=== PATIENT | female | born 1950 | race Caucasian/White ===

== ENCOUNTER → 2017-08-07 | Outpatient (CLI) | payer OTHER | LOC: BMCIMAGING 14:18 | PROVIDERS: ATTEND Internal Medicine | DX: Z12.31 Encounter for screening mammogram for malignant neoplasm of breast (principal); Z13.820 Encounter for screening for osteoporosis; M81.0 Age-related osteoporosis without current pathological fracture; Z87.81 Personal history of (healed) traumatic fracture | CPT/HCPCS: G0202 ==

== ENCOUNTER 2018-09-22 12:41 | Observation (INO) | payer OTHER ==
--- NOTE | 2018-09-22 13:09 | EDPHY ---
HPI/HX/ROS/PE/MDM Narrative: CHIEF COMPLAINT: Chest tightness HISTORY OF PRESENT ILLNESS: The patient is a 67 y/o female complaining of chest tightness worse with deep breathing and two episodes of palpitations. Twice this last week she awoke with brief episodes of palpitations. The first time it felt like her heart would be racing and then slow and then begin racing again. The second time it felt like her heart was skipping a beat. Last night, around 3:00 AM, 10 hours ago, she awoke with tightness in the center of her upper chest. The tightness spreads up the back of the neck and into the jaw. She was able to fall back asleep but her symptoms did not improve upon waking. The discomfort is consistent and worsens with deep breathing and leaning forward. Earlier this morning, her stomach was upset but the feeling past and she was able to eat breakfast. She denies exercise intolerance, vomiting, or any other associated symptoms. She reports she has never been a smoker. One of her brothers developed coronary artery disease in his 50s. She took 324 mg of aspirin around 12:30 PM, 1 hour ago. The patient also reports several recent illnesses, a lingering cough, and an increase in frequency of headaches. No fever, chills, shortness of breath, vomiting, diarrhea, urinary complaints, lightheadedness. REVIEW OF SYSTEMS: A comprehensive 10 system review of systems is otherwise negative aside from elements mentioned in the history of present illness and medical decision making PAST MEDICAL HISTORY: Osteoporosis, GERD, microscopic colitis, ulcer SOCIAL HISTORY: at bedside, lives in [place], employed by the [employer] VITAL SIGNS: Reviewed by me GENERAL: Well-developed, well-nourished, resting comfortably in no respiratory distress. HEENT: Atraumatic. Eyes: No icterus, no injection. Mouth: moist mucous membranes. No erythema or lesions. Neck: supple with no adenopathy. LUNGS: Clear to auscultation bilaterally, no wheezes, rhonchi or rales. CARDIAC: Regular rate and rhythm, no rubs, murmurs or gallops. ABDOMEN: Soft, nontender, nondistended, bowel sounds normal. BACK: No CVA tenderness. EXTREMITIES: No trauma. No edema. Range of motion is normal throughout. NEURO: Alert and oriented, grossly nonfocal. SKIN: Warm and dry, no rash. PSYCHIATRIC: Normal mentation, no agitation. ED Course: Study: X-ray of the chest Indication: Chest tightness Results: X-ray of the chest was obtained. The results of the study are: normal chest x-ray The study was read by the radiologist, Dr. Gabriel. I viewed the images myself on the PACS system. Study: CT of the chest Indication: Positive D-dimer Results: X-ray of the chest was obtained. The results of the study are: negative for PE, airways disease The study was read by the radiologist, Dr. Gabriel. I viewed the images myself on the PACS system. The patient presents with two episodes of palpations and chest discomfort waking her at night in the past week. She awoke last night with chest tightness that has not resolved. She has a family history of coronary artery disease in a brother in his 50s. Her exam is normal. Plan for labs including CBC, basic metabolic panel, lipase, liver function, troponin, and d-dimer, EKG, and chest x -ray. 1:45 PM - The patient's d-dimer was elevated. Plan for chest CTA. 3:00 PM - The patient's CT was negative for PE. There is some evidence of airways disease. I feel she will benefit from admission and further evaluation of etiology of symptoms. The patient agrees to this course of action. Dr. Elaine will be the admitting physician. Patient did receive a albuterol nebulizer treatment in an effort to see if this would improve her chest discomfort. There was no change. MDM: 67-year-old female presenting with episode of chest tightness and discomfort which woke her from sleep last night. Symptoms have been present since approximately 3:00 a.m.. Patient describes worsening of her symptoms with leaning forward as well as with taking a deep breath. Discomfort is also felt in the back of her neck and bilateral jaws. EKG reveals normal sinus rhythm. Troponin is negative. D-dimer slightly elevated. CT angiogram of the chest: - Data Points Imaging Results: CXR: Impression: 1. Clear lungs. No acute process. 2. Numerous mild age indeterminate compression fractures in the mid thoracic spine Dictated By: Noah Gabriel MD Chest CT Impression: 1. No evidence of thrombopulmonary embolic disease. 2. Mild airways disease and minimal posterior dependent atelectasis. 3. Kyphosis and old mild compression fractures. Findings discussed with Emergency Department physician, Dr. Rosibel Ellis on September 22, 2018 at 1436 hours. Dictated By: Noah Gabriel MD Imaging: Discussed imaging studies w/ call center rn Radiologist, I viewed and interpreted images myself (CXR viewed and interpreted independently by myself) Laboratory Results: Laboratory Results 09/22/18 12:55 09/22/18 12:55 Medications Given: Discontinued Medications Albuterol (Proventil Neb) 3 ml IH EDNOW ONE Stop: 09/22/18 15:12 Last Admin: 09/22/18 15:21 Dose: 3 ml Albuterol/Ipratropium (Duoneb) 3 ml IH EDNOW ONE Stop: 09/22/18 15:12 Last Admin: 09/22/18 15:21 Dose: 3 ml Aspirin (Aspirin) 325 mg PO DAILY RONI Stop: 03/22/19 08:59 Last Admin: 09/23/18 15:36 Dose: 325 mg Cholecalciferol (Vitamin D) 1,000 units PO DAILY RONI Stop: 03/22/19 08:59 Last Admin: 09/23/18 08:23 Dose: Not Given Point of Care Test Results: Chemistry 09/22/18 13:03 POC Troponin I 0.00 ng/mL ng/mL (0.00-0.08) General Time Seen by Provider: 09/22/18 12:57 Initial Vital Signs: Initial Vital Signs Temperature (C) 37 C 09/22/18 12:43 Heart Rate 86 09/22/18 12:43 Respiratory Rate 18 09/22/18 12:43 Blood Pressure 128/71 H 09/22/18 12:43 O2 Sat (%) 94 09/22/18 12:43 O2 Delivery Mode Room Air Allergies/Adverse Reactions: Penicillins Allergy (Verified 09/22/18 15:26) Rash Home Medications: Medication Instructions Recorded Ascorbic Acid [Vitamin C 500 mg 1,000 mg PO DAILY 09/22/18 (*)] Cholecalciferol Vit D3 [Vitamin D3 1,000 units PO DAILY 09/22/18 (*)] Herbals/Supplements -Info Only 1 ea PO DAILY 09/22/18 Valacyclovir HCl [Valtrex] 2,000 mg PO Q12H PRN 09/22/18 Departure - Departure Disposition: [facility] Acute Clinical Impression: Positive D dimer, Chest tightness, Palpitations, Jaw pain Condition: Good Report Scribed for: Rosibel Ellis Report Scribed by: Nahed Pa Date of Report: 09/22/18 Time of Report: 13:55 Physician Review and Approval Statement: Portions of this note were transcribed by a medical imaging technologist. I personally performed a history, physical exam, medical decision making, and confirmed accuracy of information the transcribed note.
[2018-09-22 13:18] LABS: PLATELET COUNT 313 10^3/uL (150-400)
[2018-09-22] MEDS ORDERED: IOPAMIDOL (ISOVUE 370) 100 ML BTL IV ONE (13:51)
[2018-09-22] MEDS ORDERED: IPRATROPIUM/ALBUTEROL 3 ML DEYVIAL IH ONE (15:11)
[2018-09-22] MEDS ORDERED: ALBUTEROL 3 ML DEYVIAL IH ONE (15:11)
[2018-09-22] MEDS ORDERED: ONDANSETRON DISINTEGRATING 4 MG TAB PO PRN (16:29)
[2018-09-22] MEDS ORDERED: ACETAMINOPHEN 325 MG TAB PO PRN (16:29)
[2018-09-22] MEDS ORDERED: NITROGLYCERIN 0.4 MG BTL SL PRN (16:29)
[2018-09-22] MEDS ORDERED: ONDANSETRON 4 MG/2 ML VIAL IVP PRN (16:29)
--- NOTE | 2018-09-22 16:43 | PDGENHP ---
History and Physical - Chief Complaint chest pain - History of Present Illness 67 yo F with limited PMH presenting with complaints of chest pain. Patient notes that she began having issues initially following a flu like illness in May. She notes she had general flu symptoms but also had chest heaviness on and off, mostly at night, and then cough that lasted a month. She improved but after improving from that illness had another episode of chest heaviness and tightness that woke her from sleep and lasted a couple of hours. In August, she again became ill with a flu like illness and had congestion and cough for about 8 days. That went away but then last night she was woken in the middle of the night with chest tightness and this was then associated with pain in her neck and jaw. She notes it gets worse with deep inspiration but otherwise there are no alleviating or exacerbating features. The pain lasted several hours and went away but given the overall worsening of these sxs and now involving her jaw , she came to the ER for further evaluation. She denies any sob or cough currently. She has had episodes of palpitations in the past, and this has been worse for the last several months and particularly last night when she had episodes of heart pounding and then a period of several minutes where her heart was beating hard for several beats, then seeming to skip a beat. History Information - Allergies/Home Medication List Allergies/Adverse Reactions: Penicillins Allergy (Verified 09/22/18 15:26) Rash Home Medications: Ascorbic Acid [Vitamin C 500 mg (*)] 1,000 mg PO DAILY 09/22/18 [Last Taken 09/08] Cholecalciferol Vit D3 [Vitamin D3 (*)] 1,000 units PO DAILY 09/22/18 [Last Taken 09/21/18] Herbals/Supplements -Info Only 1 ea PO DAILY 09/22/18 [Last Taken Unknown] Valacyclovir HCl [Valtrex] 2,000 mg PO Q12H PRN 09/22/18 [Last Taken Unknown] I have personally reviewed and updated: family history, medical history, social history, surgical history - Past Medical History osteoporosis Additional medical history: microscopic colitis. 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 - Surgical History Additional surgical history: 2 wrist surgeries - Family History Positive for: sudden (other brother of unknown causes, thought be a PE), male first degree with history of premature CAD (brother with first [place] in his 50s) - Social History Smoking Status: Never smoked Alcohol Use: Occasionally Drug Use: None Additional social history: , no children Review of Systems Review of Systems: ROS: 10pt was reviewed & negative except for what was stated in HPI & below Physical Exam Physical Exam: Temp Pulse Resp BP Pulse Ox 37.3 C 85 16 121/65 H 98 09/22/18 16:24 09/22/18 16:24 09/22/18 16:24 09/22/18 16:24 09/22/18 16:24 Constitutional: no apparent distress, appears nourished Eyes: PERRL, anicteric sclera Ears, Nose, Mouth, Throat: moist mucous membranes, hearing normal Cardiovascular: regular rate and rhythym, no murmur, rub, or gallop, No edema Respiratory: no respiratory distress, no rales or rhonchi, clear to auscultation Gastrointestinal: normoactive bowel sounds, soft, non-tender abdomen Genitourinary: no bladder tenderness Skin: warm, normal color Musculoskeletal: full muscle strength Neurologic: AAOx3 Psychiatric: interacting appropriately, not anxious, not encephalopathic Lab Data & Imaging Review 09/22/18 12:55 09/22/18 12:55 WBC 7.14 10^3/uL (3.80-9.50) 09/22/18 12:55 RBC 4.14 10^6/uL (4.18-5.33) L 09/22/18 12:55 Hgb 13.1 g/dL (12.6-16.3) 09/22/18 12:55 Hct 39.3 % (38.0-47.0) 09/22/18 12:55 MCV 94.9 fL (81.5-99.8) 09/22/18 12:55 MCH 31.6 pg (27.9-34.1) 09/22/18 12:55 MCHC 33.3 g/dL (32.4-36.7) 09/22/18 12:55 RDW 13.5 % (11.5-15.2) 09/22/18 12:55 Plt Count 313 10^3/uL (150-400) 09/22/18 12:55 MPV 10.3 fL (8.7-11.7) 09/22/18 12:55 Neut % (Auto) 77.8 % (39.3-74.2) H 09/22/18 12:55 Lymph % (Auto) 15.1 % (15.0-45.0) 09/22/18 12:55 Fergus % (Auto) 6.4 % (4.5-13.0) 09/22/18 12:55 Eos % (Auto) 0.3 % (0.6-7.6) L 09/22/18 12:55 Baso % (Auto) 0.1 % (0.3-1.7) L 09/22/18 12:55 Nucleat RBC Rel Count 0.0 % (0.0-0.2) 09/22/18 12:55 Absolute Neuts (auto) 5.55 10^3/uL (1.70-6.50) 09/22/18 12:55 Absolute Lymphs (auto) 1.08 10^3/uL (1.00-3.00) 09/22/18 12:55 Absolute Monos (auto) 0.46 10^3/uL (0.30-0.80) 09/22/18 12:55 Absolute Eos (auto) 0.02 10^3/uL (0.03-0.40) L 09/22/18 12:55 Absolute Basos (auto) 0.01 10^3/uL (0.02-0.10) L 09/22/18 12:55 Absolute Nucleated RBC 0.00 10^3/uL (0-0.01) 09/22/18 12:55 Immature Gran % 0.3 % (0.0-1.1) 09/22/18 12:55 Immature Gran # 0.02 10^3/uL (0.00-0.10) 09/22/18 12:55 D-Dimer 0.83 ug/mLFEU (0.00-0.50) H 09/22/18 12:55 Sodium 137 mEq/L (135-145) 09/22/18 12:55 Potassium 3.9 mEq/L (3.5-5.2) 09/22/18 12:55 Chloride 106 mEq/L (97-110) 09/22/18 12:55 Carbon Dioxide 25 mEq/l (22-31) 09/22/18 12:55 Anion Gap 6 mEq/L (6-14) 09/22/18 12:55 BUN 8 mg/dL (7-23) 09/22/18 12:55 Creatinine 0.6 mg/dL (0.6-1.0) 09/22/18 12:55 Estimated GFR > 60 09/22/18 12:55 Glucose 124 mg/dL (70-100) H 09/22/18 12:55 Calcium 9.1 mg/dL (8.5-10.4) 09/22/18 12:55 Total Bilirubin 0.6 mg/dL (0.1-1.4) 09/22/18 12:55 Conjugated Bilirubin 0.2 mg/dL (0.0-0.5) 09/22/18 12:55 Unconjugated Bilirubin 0.4 mg/dL (0.0-1.1) 09/22/18 12:55 AST 21 IU/L (14-46) 09/22/18 12:55 ALT 22 IU/L (9-52) 09/22/18 12:55 Alkaline Phosphatase 72 IU/L (38-126) 09/22/18 12:55 POC Troponin I 0.00 ng/mL (0.00-0.08) 09/22/18 13:03 Total Protein 6.9 g/dL (6.3-8.2) 09/22/18 12:55 Albumin 3.9 g/dL (3.5-5.0) 09/22/18 12:55 Lipase 108 IU/L (23-300) 09/22/18 12:55 Visualized and Interpreted Chest x-ray results: Yes Chest X-Ray results: no infiltrate, other (multiple age indeterminate compression fractures) Visualized and Interpreted imaging results: Yes Interpretation: CTA: no PE, mild airways disease and atelectasis Visualized and Interpreted EKG results: Yes EKG Interpretation: Positive for: normal sinsus rhythm Assessment & Plan Assessment: Positive D dimer (Acute) Chest tightness (Acute) Palpitations (Acute) Jaw pain (Acute) 67 yo F with PMH of osteoporosis and family hx of early onset CAD presenting with chest pain # chest pain: with heart score of 5 and family hx of early onset CAD, initial w/ u thus far unremarkable including negative troponin and non specific ECG, CTA negative for PE. Plan will be for trending troponin overnight, monitor on tele. Will get treadmill with nuc med in the am so long as w/u overnight remains unremarkable given concerning hx and non specific TW changes on rest ecg. Will get lipid panel in am. # osteoporosis: with e/o multiple compression fractures on imaging, patient not on bisphosphonates due to issues with esophageal ulcer, recommend she get f/u with endocrinology given relative young age for this to occur and for ongoing medical management # microscopic colitis: long standing history of this, patient notes her sxs are currently at baseline # observation status Patient new to my care. Old records reviewed and summarized as above. Care plan reviewed with ER doctor as above, further hx obtained from patients present at bedside.
[2018-09-22] MEDS ORDERED: valACYclovir 500 MG TAB PO PRN (17:00)
--- NOTE | 2018-09-22 22:49 | CPEKG ---
Test Reason : OPEN Blood Pressure : / mmHG Vent. Rate : 072 BPM Atrial Rate : 072 BPM P-R Int : 148 ms QRS Dur : 068 ms QT Int : 382 ms P-R-T Axes : 057 036 044 degrees QTc Int : 419 ms Sinus rhythm Confirmed by Rosibel Ellis ([id number]) on 09/22/2018 10:48:33 PM Referred By: Rosibel Ellis Confirmed By:Rosibel Ellis
[2018-09-23] MEDS ORDERED: ASPIRIN 325 MG TAB PO SCH (09:00)
[2018-09-23] MEDS ORDERED: CHOLECALCIFEROL VIT D3 1,000 UNITS TAB PO SCH (09:00)
[2018-09-23] MEDS ORDERED: REGADENOSON 0.4 MG/5 ML SYR IVP ONE (09:55)
--- NOTE | 2018-09-23 10:40 | CPEKG ---
Test Reason : OPEN Blood Pressure : / mmHG Vent. Rate : 074 BPM Atrial Rate : 074 BPM P-R Int : 154 ms QRS Dur : 072 ms QT Int : 386 ms P-R-T Axes : 042 020 051 degrees QTc Int : 429 ms Sinus rhythm Confirmed by Shawn Piña ([id number]) on 09/23/2018 10:39:56 AM Referred By: Eva Elaine Confirmed By:Shawn Piña
--- NOTE | 2018-09-23 14:00 | HOSPPROG ---
Hospitalist Progress Note Assessment/Plan: 67 yo F with PMH of osteoporosis and family hx of early onset CAD presented with chest pain # chest pain: heart score 5 and family hx of early onset CAD. Trops neg x2. CTA negative for PE. EKG with non-specific ST changes in lateral leads. Nuc stress test with abnormality of inferior wall on stress images. -needs resting images in am -also, will send RVP, ?bronchial inflammation with airway dz on CT # osteoporosis: multiple compression fractures on imaging, patient not on bisphosphonates due to h/o esophageal ulcer -outpt f/u with endocrine # microscopic colitis: stable # dispo: change to inpt for further cardiac eval Subjective: Pt feels better. No more chest pain. She does have a little cough , notes recent viral illness. No SOB. Objective: Vital Signs Temp Pulse Resp BP Pulse Ox 36.7 C 57 L 16 112/59 L 96 09/23/18 11:44 09/23/18 11:44 09/23/18 11:44 09/23/18 11:44 09/23/18 11:44 09/22/18 09/23/18 09/24/18 05:59 05:59 05:59 Intake Total 850 Balance 850 - Physical Exam Constitutional: no apparent distress Eyes: PERRL Ears, Nose, Mouth, Throat: moist mucous membranes Cardiovascular: regular rate and rhythym, no murmur, rub, or gallop Respiratory: no respiratory distress, clear to auscultation Gastrointestinal: normoactive bowel sounds, soft, non-tender abdomen Skin: warm Musculoskeletal: full muscle strength Neurologic: AAOx3 Psychiatric: interacting appropriately ICD10 Worksheet Patient Problems: Problems Problem Status Onset Chest tightness Acute Jaw pain Acute Palpitations Acute Positive D dimer Acute
--- NOTE | 2018-09-23 15:34 | ASMTCMCOM ---
CM Note CM Note Notes: Reviewed chart, spoke with Dr. Levy. Pt admitted for worsening chest tightness, dyspnea and palpitations. Pt found to have an abnormal stress test. History includes microscopic colitis, esophageal ulcer, osteoporosis and CAD. Pt is and lives with her in [place]. Pt to likely discharge home independently with family support and no identified needs when medically stable. Per AYAAN Raygoza, pt concerned about insurance coverage for hospitalization. CM encouraged pt to call her insurance company on Monday09/24/18 for specific benefit information. CM will continue to follow for any potential needs. Discharge Plan: Likely home independent with family support Date Signed: 09/23/2018 03:33 PM Electronically Signed By:Quiana Vines RN
--- NOTE | 2018-09-23 19:24 | PDMN ---
Medical Necessity Medical necessity: MCG: M40 angina- pt presents with CP radiates to neck and jaw- worse with deep inspiration, PMHx osteoporosis, family hx of early onset CAD - EKG shows non specific ST changes in lateral leads, Nuc ST with abnormality of inferior wall- status changed to INPT 09/23/18 for ongoing med nec - further monitoring and cardiac eval nec. > 2 MN>
--- NOTE | 2018-09-23 20:27 | GOP ---
[f rep st] OPERATIVE REPORT DATE OF OPERATION: 09/23/2018 SURGEON: Shawn Piña MD PREOPERATIVE DIAGNOSIS: POSTOPERATIVE DIAGNOSIS: PROCEDURE PERFORMED: Cardiac nuclear stress test. FINDINGS: INDICATIONS: Chest pain. Myocardial infarction ruled out. No known history of coronary artery dise ase. DESCRIPTION OF PROCEDURE: After informed consent, the patient was placed on a James protocol. She w as able to exercise for a total of 7 minutes and 30 seconds on a James protocol. Maximum heart 148, maximum blood pressure 152/72. She had normal oxygenation throughout the test. She had a normal EKG with some upsloping ST-T wave changes at peak exercise, which rapidly recovered in recovery. Approx imately 1 minute prior to ending the test, she had nuclear tracer injected without incident. She did have some mild pleuritic chest pain at the start of the test. However, this did not influence her t est and actually improved with exercise. In recovery, she had pretty good baseline state without iss ues. CONCLUSION: 1. Probable normal exercise stress test. There were some mild upsloping ST-T wave changes at peak e xercise, but no other associated symptoms of chest pain, palpitations, or syncope. 2. Nuclear tracer was injected without incidence. Nuclear imaging to follow up. The patient antonella christine got to baseline state without issues. /[id number]/MODL
[2018-09-24 12:16] VITALS: BP 109/62
--- NOTE | 2018-09-24 14:25 | ASMTCMCOM ---
CM Note CM Note Notes: Pt getting resting scans today. No CM concerns at this time. Pt is likely to be discharged independently. CM available if needs may arise. Plan: Independent Date Signed: 09/24/2018 02:24 PM Electronically Signed By:MALACHI Ayon
--- NOTE | 2018-09-24 15:54 | PDDCSUM ---
Discharge Summary Discharge Summary: DISCHARGE DIAGNOSES: * chest pain at rest, resolved, ruled out for [place] * no evidence of PE on CT chest * no evidence of acute active ischemia on stress test with myocardial perfusion imaging * evidence of possible airways disease on CT chest PROCEDURES: CT scan with angio of chest Treadmill stress test with myocardial perfusion imaging HOSPITAL COURSE SUMMARY: This patient has significant family history of heart disease comes into the hospital complaining of chest pain symptoms going on and off over few weeks. These involved a pressure type pain and ache that were sometimes pleuritic in nature but had some radiation to the neck and arm. She rule out for myocardial infarction, had no CHF, and no arrhythmia. CT chest showed no evidence of PE or other concerning abnormalities or explanation for the pain. She underwent treadmill stress testing with myocardial perfusion imaging. The images showed some attenuation of contrast in the posterior wall and inferior apex that appeared to be due to bowel attenuation and unchanged between stress and rest studies, indicating absence of active ischemia. Patient's hospital course was uncomplicated otherwise and she has no symptoms at this time. She is up walking in the hallways without difficulty, and is eating and drinking well, no shortness of breath. The cause of her symptoms is uncertain. Possibility of esophageal etiologies considered. Also the patient has had waxing and waning upper respiratory infection type symptoms for a few weeks and her CT scan does show possible mild airways disease. Question if she may have had some bronchitis or may be developing some mild underlying asthma. She is not wheezing at this time. She is stable for discharge home. Is recommended to her that she follow up with primary care. The patient is aware that there can be occasional false negative results on cardiac stress test and perfusion imaging, and she does understand that if she continues to have symptoms she should continue to seek out diagnostic attention. PENDING TEST RESULTS: None MEDICATION CHANGES: None FOLLOW-UP PLAN: With primary care in 1-2 weeks Greater than 35 minutes bedside and care coordination time today
--- NOTE | 2018-09-24 16:06 | ASDISCHSUM ---
Discharge Information Plan Status:Home with No Needs Medically Cleared to Leave: Discharge Date: CM D/C Disposition:Home, Routine, Self-Care ADT D/C Disposition:Home, Routine, Self-Care Projected Discharge Date: Transportation at D/C:Family Discharge Delay Reason: Follow-Up Date: Discharge Slot: Final Diagnosis:Chest pain, abnormal stress test, esophageal ulcer Placement Information Patient Contact Information Contact Name:JARRELL Relationship: Address:[address] [place] [address] Work Phone: City:Located within [facility] Phone: State/Zip Code:[place] [address] Email: Financial Information Financial Class:[facility] Primary Plan Desc:TYREE PPO [employer] Primary Plan Number:[id number] Secondary Plan Desc: Secondary Plan Number: Assessment Information LACE LACE Length of stay for Answers: 1 day current admission Acuity / Level of Answers: Yes Care: Did the patient have an inpatient admission? Comorbidities - select Answers: Coronary Artery Disease all that apply Other Notes: Microscopic colitis, esophageal ulcers, osteoporosis # of Emergency department Answers: 1-2 visits in the last 6 months Score: 8 Date Signed: 09/24/2018 04:06 PM Electronically Signed By:MALACHI Ayon [facility] CM Progress Note CM Note CM Note Notes: Reviewed chart, spoke with Dr. Levy. Pt admitted for worsening chest tightness, dyspnea and palpitations. Pt found to have an abnormal stress test. History includes microscopic colitis, esophageal ulcer, osteoporosis and CAD. Pt is and lives with her in [place]. Pt to likely discharge home independently with family support and no identified needs when medically stable. Jerry Raygoza RN, pt concerned about insurance coverage for hospitalization. CM encouraged pt to call her insurance company on Monday09/24/18 for specific benefit information. CM will continue to follow for any potential needs. Discharge Plan: Likely home independent with family support Date Signed: 09/23/2018 03:33 PM Electronically Signed By:Quiana Vines RN [facility] CM Progress Note CM Note CM Note Notes: Pt getting resting scans today. No CM concerns at this time. Pt is likely to be discharged independently. CM available if needs may arise. Plan: Independent Date Signed: 09/24/2018 02:24 PM Electronically Signed By:MALACHI Ayon Case Management Discharge Plan Note Case Management Discharge Discharge Order Complete? Answers: Yes Patient to Obtain Answers: via Family Medications Transportation Arranged Answers: Family/Friends Discharge Comments Notes: Pt is being discharged independently. No CM needs identified. Pt to arrange transport. Date Signed: 09/24/2018 04:05 PM Electronically Signed By:MALACHI Ayon Intervention Information
== END 2018-09-24 16:15 | disposition home or self-care (01) ==
LOC: F2W 16:19 → OBSVTOIN 09-23 14:51 → INTOOBSV 09-23 14:51
PROVIDERS: ADMIT Internal Medicine; ATTEND Internal Medicine
DX: R07.89 Other chest pain (principal); J45.909 Unspecified asthma, uncomplicated; M81.0 Age-related osteoporosis without current pathological fracture; K21.9 Gastro-esophageal reflux disease without esophagitis; Z82.49 Family history of ischemic heart disease and other diseases of the circulatory system
CPT/HCPCS: 71046; 71275; 78452; 93005; 93017; 99285; A9500; G0378; 84484-ER; J2785; J7613; Q9967

== ENCOUNTER → 2019-01-11 | Outpatient (CLI) | payer OTHER | LOC: BMCIMAGING 12:24 | PROVIDERS: ATTEND Internal Medicine | DX: R10.11 Right upper quadrant pain (principal); K76.0 Fatty (change of) liver, not elsewhere classified ==